=== PATIENT | male | born 1990 | race Caucasian/White ===

== ENCOUNTER 2018-12-01 21:56 | Emergency (ER) | payer OTHER ==
[~2018-12-01] VITALS: Ht 162.6 cm; Wt 59.0 kg
[2018-12-02] MEDS ORDERED: PEPCID40 MG PO (02:49)
== END 2018-12-02 03:14 | disposition home or self-care (01) ==
LOC: ER 21:56
DX: K29.70 Gastritis, unspecified, without bleeding (principal)